=== PATIENT | male | born 1945 | race Caucasian/White ===

== ENCOUNTER → 2016-06-06 | Outpatient (CLI) | payer OTHER ==
[~2016-06-06] VITALS: Ht 182.9 cm; Wt 79.4 kg
[~2016-06-06] MED LIST: FLOMAX0.4 MG PO; SIMVASTATIN10 MG PO
--- NOTE | ~2016-06-06 | P ---
[facility] [place] [address] PROCEDURE REPORT Name: JEROME GUTIERREZ [facility] [id number] Admission: 06/06/16 Attend Phys: Jerome Ramires MD Discharge: Date of : 49 Report #: [id number] THIS REPORT FOR: //name// CC: Jerome Cash MD BRIEF HISTORY: The patient is a 71-year-old male with history of colon polyps. Last colonoscopy was 3 years ago. PREOPERATIVE DIAGNOSIS: History of colon polyps. POSTOPERATIVE DIAGNOSES: 1. Moderately severe left-sided diverticulosis coli. 2. A few scattered proximal colon diverticula. MEDICATIONS: Deep sedation with propofol per anesthesia. SPECIMEN: None. ESTIMATED BLOOD LOSS: None. PROCEDURE: Colonoscopy to cecum and terminal ileum. FINDINGS: Prior to propofol sedation, procedure of colonoscopy discussed with the patient as well as potential risks, benefits, and complications. He indicates he understands and desires to proceed. With the patient in left lateral decubitus position, digital examination was completed, which revealed no abnormalities. Subsequently, the tenXer video colonoscope was introduced into the rectum, advanced under direct vision to the cecum. Done with minimal difficulty. The cecum was identified by the ileocecal valve and the appendiceal orifice. I was able to visualize the distal segment of terminal ileum, which was inspected and noted to be unremarkable. At that point, the scope was slowly withdrawn and careful circumferential views obtained including retroflexing the scope in the ascending colon. Upon slow withdrawal of the scope, the prep was excellent. The mucosa was within normal limits, normal vascular pattern, and normal light reflex. No neoplastic lesions were seen on today's examination. CONDITION OF THE PATIENT UPON DISCHARGE: Following procedure, the patient drowsy, aroused, conversant and will be discharged home when fully ambulatory. INSTRUCTIONS TO THE PATIENT AND FAMILY AT THE TIME OF DISCHARGE: No neoplastic lesions were seen today. He had several diminutive polyps on his last exam. In recovery, just talking with the patient, he notes that he is uncertain that his father did have colon cancer; however, It is possible he may have had colon [facility] [address] [place] [address] PROCEDURE REPORT Name: MAHSAMARGYJEROME PLAZA [facility] #: [facility] Center[facility] AntonioJos[facility] Antonio#: [id number] Admission: 06/06/16 Attend Phys: Jerome Ramires MD Discharge: Date of : 49 Report #: [id number] cancer. His father was quite young with this illness and in his 40s. The patient was told in the past to have a colonoscopy every 3 years. I do not think it needs to be strictly that often. We talked about a 5-10 interval period and since there remains concern that there is a significant family history of colon cancer, he will return in 5 years for his next colonoscopy. Previous colonoscopy was 3 years ago. Withdrawal time from the cecum was 10 minutes. <ELECTRONICALLY SIGNED> By: Jerome Ramires MD 06/07/16 1714 [id number] Jerome Ramires MD /nt
== END ==
LOC: GI 09:21
DX: Z12.11 Encounter for screening for malignant neoplasm of colon (principal); K57.30 Diverticulosis of large intestine without perforation or abscess without bleeding; G47.33 Obstructive sleep apnea (adult) (pediatric); E78.00 Pure hypercholesterolemia, unspecified; Z80.0 Family history of malignant neoplasm of digestive organs
CPT/HCPCS: 62110; 62900